=== PATIENT | male | born 1950 | race Hispanic/Latino ===

== ENCOUNTER 2023-10-04 17:08 | Inpatient (IN) | payer OTHER ==
[2023-10-04 19:46] LABS: Absolute Basophils 0.1 K/uL (0-0.5); Absolute Eosinophils 0.3 K/uL (0-0.5); Absolute Lymphocytes (CBC) 2.1 K/uL (0.7-4.9); Absolute Monocytes 0.8 K/uL (0.1-1.3); Absolute Neutrophil 5.6 K/uL (1.8-8.0); Basophils % 0.6 % (0-1.3); Eosinophils % 2.9 % (0-4.4); Hematocrit 44.7 % (39.6-49.0); Hemoglobin 14.5 g/dL (13.6-17.9); Lymphocytes % 23.6 % (15.3-44.8); MCH 27.9 pg (27.0-35.0); MCHC 32.3 g/dL (32.0-36.0); MCV 86.3 fL (80-100); MPV 7.7 fL (7.6-11.3); Monocytes % 8.7 % (3.3-12.3); Neutrophils % 64.2 % (41.7-73.7); Nucleated Red Blood Cells % 0.1 % (0-0); Platelets 249 thou/uL (152-406); RBC Red Blood Cell Count 5.18 M/uL (4.33-5.43); Red Cell Distribution Width 14.3 % (12.1-15.2)
[2023-10-04 19:47] LABS: PT Prothrombin Time 19.5 SECONDS (9.4-12.5); PTT, Activated Partial Thromb 39.2 SECONDS (24.3-36.9); Protime INR 1.77
--- NOTE | 2023-10-04 19:50 | RAD REPORT ---
EXAM DESCRIPTION: [facility] Single View10/04/2023 7:33 pm CLINICAL HISTORY: Preop for back surgery COMPARISON: none FINDINGS: The lungs appear clear of acute infiltrate. The heart is normal size IMPRESSION: No acute abnormalities displayed
[2023-10-04 19:54] LABS: Specific Gravity 1.017 (1.005-1.030); Sqamous Epithelial None Seen /HPF (None Seen); Urine Bacteria None Seen /HPF (<20); Urine Bilirubin NEGATIVE (Negative); Urine Blood Negative (Negative); Urine Clarity Clear (Clear); Urine Color Light-Yellow (Yellow); Urine Culture Reflex Order NOT NEEDED; Urine Glucose NEGATIVE (Negative); Urine Ketones NEGATIVE (Negative); Urine Microscopic Reflex YN ORDER UMIC; Urine Mucus Slight /HPF (None Seen); Urine Nitrite NEGATIVE (Negative); Urine Protein NEGATIVE (Negative); Urine RBC <5 /HPF (None Seen); Urine Urobilinogen Normal (Normal); Urine WBC <5 /HPF (<5)
[2023-10-04] MEDS ORDERED: VANCOMYCIN 1 GM/VIAL ONE (19:58)
[2023-10-04] MEDS ORDERED: NA CHLORIDE 0.9% 250 ML ONE (19:58)
--- NOTE | 2023-10-04 19:59 | ER ---
Nurse's Notes [facility] Name: Clarke Hough Age: 73 yrs Sex: Male : 1950 Arrival Date: 10/04/2023 Time: 17:08 Bed 15 Private MD: Diagnosis: Cutaneous abscess of back [any part, except buttock] Presentation: 10/03 17:31 Chief complaint: Patient states: Dr. Morejon told him to come to ER , he has a cyst on iw his back that popped, he was supposed to have surgery Wednesday but he told me to come in today to the ER. Coronavirus screen: At this time, the client does not indicate any symptoms associated with coronavirus-19. Ebola Screen: No symptoms or risks identified at this time. Initial Sepsis Screen: Does the patient meet any 2 criteria? No. Patient's initial sepsis screen is negative. Does the patient have a suspected source of infection? No. Patient's initial sepsis screen is negative. Risk Assessment: Do you want to hurt yourself or someone else? Patient reports no desire to harm self or others. Onset of symptoms was October 04, 2023. 17:31 Method Of Arrival: Ambulatory iw 17:31 Acuity: NGA 3 iw Historical: - Allergies: 17:32 No Known Allergies; iw - PMHx: 17:32 Hypertensive disorder; iw - PSHx: 17:32 shoulder; iw - Immunization history:: Adult Immunizations up to date. - Infectious Disease History:: Denies. - Social history:: Smoking status: Patient denies any tobacco usage or history of. Screenin:[facility] ED Fall Risk Assessment (Adult) History of falling in the last 3 months, tl4 including since admission No falls in past 3 months (0 pts) Confusion or Disorientation No (0 pts) Intoxicated or Sedated No (0 pts) Impaired Gait No (0 pts) Mobility Assist Device Used No (0 pt) Altered Elimination No (0 pt) Score/Fall Risk Level 0 - 2 = Low Risk Oriented to surroundings, Maintained a safe environment, Educated pt \\T\\ family on fall prevention, incl call for assistance when getting out of bed, Assessed \\T\\ reinforced patient's understanding of fall precautions. Abuse screen: Denies threats or abuse. Denies injuries from another. Nutritional screening: No deficits noted. Tuberculosis screening: No symptoms or risk factors identified. Assessment: 19:35 General: Appears in no apparent distress. Behavior is calm, cooperative. Pain: tl4 Complains of pain in back. Neuro: Level of Consciousness is awake, alert, obeys commands, Oriented to person, place, time, situation, Moves all extremities. Full function Gait is steady, Speech is normal, Facial symmetry appears normal. Cardiovascular: Capillary refill < 3 seconds Patient's skin is warm and dry. Respiratory: Airway is patent Respiratory effort is even, unlabored, Respiratory pattern is regular, symmetrical, Breath sounds are clear bilaterally. GI: No signs and/or symptoms were reported involving the gastrointestinal system. : No signs and/or symptoms were reported regarding the genitourinary system. EENT: No signs and/or symptoms were reported regarding the EENT system. Derm: Abscess located on back has purulent drainage. Musculoskeletal: No signs and/or symptoms reported regarding the musculoskeletal system. Vital Signs: 17:33 BP 113 / 71; Pulse 65; Resp 16; Pulse Ox 97% ; Weight 120.2 kg; Height 5 ft. 9 in. ; iw Pain 5/10; 19:30 BP 136 / 73; Pulse 72; Resp 18; Pulse Ox 98% on R/A; tl4 21:00 BP 144 / 68; Pulse 65; Resp 16; Pulse Ox 97% on R/A; tl4 17:33 Body Mass Index 39.13 (120.20 kg, 175.26 cm) iw 17:33 Pain Scale: Adult iw ED Course: 17:12 Patient arrived in ED. mr 17:22 Armond Humphrey PA is PHCP. cp 17:22 Pedro Belle MD is Attending Physician. cp 17:32 Triage completed. iw 17:33 Arm band placed on. iw 18:58 Bridger Jimenes, LEE is Primary Nurse. tl4 19:33 Urinalysis w/ reflexes Sent. tl4 19:34 Wound Culture Sent. tl4 19:34 Ptt, Activated Sent. tl4 19:34 PT-INR Sent. tl4 19:34 Lactate w/ 2H reflex if indic. Sent. tl4 19:34 CMP Sent. tl4 19:34 CBC with Diff Sent. tl4 19:35 XRAY Chest (1 view) In Process Unspecified. EDMS 19:35 No provider procedures requiring assistance completed. Initial lab(s) drawn, by me, tl4 sent to lab. Urine collected: clean catch specimen, clear, Wound culture swab sent to lab. Inserted saline lock: 22 gauge in left forearm, using aseptic technique. Blood collected. Flushed with 10 mL NS. 19:37 Patient has correct armband on for positive identification. Placed in gown. Bed in low tl4 position. Call light in reach. Side rails up X 1. Provided Education on: ed process, call bey. Client placed on continuous cardiac and pulse oximetry monitoring. NIBP monitoring applied. Door closed. Noise minimized. Lights dimmed. Moved to private room. 19:38 Patient admitted, IV remains in place. tl4 19:42 EKG done, by ED staff, reviewed by Armond CROWLEY. oe 19:59 Bebe Gallegos MD is Hospitalizing Provider. cp 10/04 06:17 Inserted saline lock: 22 gauge in right forearm, using aseptic technique. Blood oe collected. Flushed with 10 mL NS. 11:30 1130 CM met with patient at bedside in the ED exam room. Patient identified by name and ane . Demographic sheet confirmed. states lives with his Linn in a single story home. He reports that prior to admission, he performs ADLs independently and without physical limitations. Patient states he does not have DME, HH, home oxygen at this time, however, mentioned that Dr. Morejon informed him he is going to need "wound care everyday" . Patient also noted that he lives in [place] and has [employer], and is requesting that the HH must be in his are and covered under his insurance. 's plan is to return home upon discharge. He states his adult son can transport him home. CM team will continue to follow and coordinate care. 12:59 Patient admitted, IV remains in place. dd2 Administered Medications: 10/03 20:01 Drug: vancoMYCIN IVPB 1 grams IVPB once over 2 hrs Route: IVPB; Infused Over: 2 hrs; tl4 Site: left antecubital; Delivery: Primary tubing; 21:40 Follow up: Response: No adverse reaction; IV Status: Completed infusion; IV Intake: tl4 250ml Medication: 19:37 VIS not applicable for this client. tl4 Intake: 21:40 IV: 250ml; Total: 250ml. tl4 Outcome: 19:59 Decision to Hospitalize by Provider. cp 10/04 12:18 Admitted to Tele accompanied by tech, via wheelchair, room 408, mb9 Condition: stable Instructed on the need for admit, 12:59 Patient left the ED. dd2 Signatures: Dispatcher [employer] EDMS JarethYessi, Reg Reg mr Ignacia Jane, RN RN Armond Freeman PA PA cp Victoriano Armstrong Mary Beth, RN RN mb9 Bridger Jimenes RN RN tl4 Sonja Calderon RN RN ane DAVIS, DIANA, RN RN dd2
[2023-10-04 20:00] LABS: Albumin 3.6 g/dL (3.4-5.0); Albumin/Globulin Ratio 0.9 (1.1-1.8); Bilirubin Total 0.5 mg/dL (0.2-1.0); Globulin 3.9 g/dL (2.3-3.5); Protein, Total 7.5 g/dL (6.4-8.2)
--- NOTE | 2023-10-04 20:00 | EDPHYS ---
Physician Documentation [facility] Name: Clarke Hough Age: 73 yrs Sex: Male : 1950 Arrival Date: 10/04/2023 Time: 17:08 Bed 15 Private MD: ED Physician Pedro Belle HPI: 10/03 17:45 This 73 yrs old Male presents to ER via Ambulatory with complaints of Abscess. cp 17:45 The patient presents with an abscess of the back. Description: draining, warm, tender. cp 17:45 Associated signs and symptoms: Pertinent negatives: fever, shortness of breath. cp Severity of symptoms: in the emergency department the symptoms are unchanged, despite home interventions. Historical: - Allergies: 17:32 No Known Allergies; iw - PMHx: 17:32 Hypertensive disorder; iw - PSHx: 17:32 shoulder; iw - Immunization history:: Adult Immunizations up to date. - Infectious Disease History:: Denies. - Social history:: Smoking status: Patient denies any tobacco usage or history of. ROS: 17:50 Constitutional: Negative for body aches, chills, fever, poor PO intake, cp 17:50 Skin: Positive for abscess, of the back, cp 17:50 Eyes: Negative for injury, pain, redness, and discharge, cp 17:50 Cardiovascular: Negative for chest pain, edema, palpitations, 17:50 Respiratory: Negative for cough, shortness of breath, wheezing, 17:50 Abdomen/GI: Negative for abdominal pain, vomiting, diarrhea, constipation, 17:50 All other systems are negative, Exam: 17:55 Constitutional: The patient appears in no acute distress, alert, awake, cp non-diaphoretic, well developed, well nourished, 17:55 Head/Face: Normocephalic, atraumatic. cp 17:55 Eyes: Periorbital structures: appear normal, Conjunctiva: normal, no exudate, no injection, Sclera: no appreciated abnormality, Lids and lashes: appear normal, bilaterally, 17:55 ENT: External ear(s): are unremarkable, Nose: is normal, Mouth: Lips: moist, Oral mucosa: pink and intact, moist, Posterior pharynx: is normal, airway is patent, no erythema, no exudate, 17:55 Chest/axilla: Inspection: normal, 17:55 Cardiovascular: Rate: normal, Rhythm: regular, Edema: is not appreciated, JVD: is not appreciated, 17:55 Respiratory: the patient does not display signs of respiratory distress, Respirations: normal, no use of accessory muscles, no retractions, labored breathing, is not present, Breath sounds: are clear throughout, no decreased breath sounds, no stridor, no wheezing, 17:55 Abdomen/GI: Exam negative for discomfort, distension, guarding, Inspection: abdomen appears normal, 17:55 Back: large abscess mid back with mild erythema, purulent drainage noted, 17:55 Neuro: Orientation: to person, place \T\ time. Mentation: is normal, Motor: moves all fours, strength is normal, Sensation: is normal, 19:45 ECG was reviewed by the Attending Physician. cp Vital Signs: 17:33 BP 113 / 71; Pulse 65; Resp 16; Pulse Ox 97% ; Weight 120.2 kg; Height 5 ft. 9 in. ; iw Pain 5/10; 19:30 BP 136 / 73; Pulse 72; Resp 18; Pulse Ox 98% on R/A; tl4 21:00 BP 144 / 68; Pulse 65; Resp 16; Pulse Ox 97% on R/A; tl4 17:33 Body Mass Index 39.13 (120.20 kg, 175.26 cm) iw 17:33 Pain Scale: Adult iw MDM: 17:39 Patient medically screened. cp 18:00 Differential diagnosis: abscess, sepsis, cyst. cp 20:30 Data reviewed: vital signs, nurses notes, lab test result(s), EKG, radiologic studies, cp plain films, and as a result, I will admit patient. 20:30 Independent interpretation of the following test(s) in the Emergency Department EKG: cp See my EKG interpretation above. 20:33 Management of patient was discussed with the following: Hospitalist: will admit after cp discussion, DR Gallegos. 10/03 17:41 Order name: CBC with Diff; Complete Time: 19:53 cp 10/03 17:41 Order name: CMP cp 10/03 20:25 Interpretation: Normal except: CL 108; GLUC 111; BUN 22; GFR 75; GLOB 3.9; A/G 0.9. cp 10/03 17:41 Order name: Lactate w/ 2H reflex if indic.; Complete Time: 20:25 10/03 19:06 Order name: PT-INR; Complete Time: 19:53 cp 10/03 19:06 Order name: Ptt, Activated; Complete Time: 19:53 10/03 19:53 Interpretation: Reviewed. 10/03 19:06 Order name: Wound Culture 10/03 19:07 Order name: Urinalysis w/ reflexes; Complete Time: 20:00 10/03 20:00 Interpretation: Reviewed. 10/03 21:02 Order name: CBC with Automated Diff EDVA 10/03 21:02 Order name: CBC with Automated Diff EDMS 10/03 21:02 Order name: Comprehensive Metabolic Panel [facility] 10/03 21:02 Order name: Comprehensive Metabolic Panel [facility] 10/03 22:32 Order name: Thyroid Stimulating Hormone [facility] 10/03 23:38 Order name: Hemoglobin A1c [facility] 10/04 02:35 Order name: Glucose, Ancillary Testing [facility] 10/04 07:58 Order name: Glucose, Ancillary Testing [facility] 10/04 08:01 Order name: PT-INR dd2 10/04 08:36 Order name: Protime (+INR) [facility] 10/04 12:07 Order name: Glucose, Ancillary Testing [facility] 10/03 19:06 Order name: XRAY Chest (1 view); Complete Time: 19:53 10/03 19:54 Interpretation: Report review. 10/03 19:06 Order name: EKG; Complete Time: 19:06 10/03 21:02 Order name: CONS Physician Consult [facility] 10/03 17:41 Order name: IV; Complete Time: 19:34 10/03 19:06 Order name: EKG - Nurse/Tech; Complete Time: 19:47 10/04 08:20 Order name: Labs - recollect needed: recollect blue top; Complete Time: 08:25 bd EC:45 Rate is 68 beats/min. Rhythm is regular. RI interval is normal. QRS interval is normal. cp QT interval is normal. T waves are Inverted in lead aVR. Interpreted by me. Reviewed by me. Administered Medications: 20:01 Drug: vancoMYCIN IVPB 1 grams IVPB once over 2 hrs Route: IVPB; Infused Over: 2 hrs; tl4 Site: left antecubital; Delivery: Primary tubing; 21:40 Follow up: Response: No adverse reaction; IV Status: Completed infusion; IV Intake: tl4 250ml Disposition Summary: 10/04/23 19:59 Hospitalization Ordered Notes: Hospitalization Status: Inpatient Admission cp Provider: Bebe Gallegos cp Condition: Stable cp Problem: new cp Symptoms: have improved cp Bed/Room Type: Standard cp Location: Telemetry/MedSurg (Inpatient)(10/05/23 12:06) bd Room Assignment: 408(10/05/23 12:06) bd Diagnosis - Cutaneous abscess of back [any part, except buttock] cp Forms: - Medication Reconciliation Form cp - SBAR form cp - Leadership Thank You Letter cp Addendum: 10/08/2023 07:47 I was immediately available for consultation during this patient's visit. I did not e c2 personally see the patient or discuss the patient with the MARCEL. . Signatures: Dispatcher [employer] [facility] Audrey Lorenz Irene, RN RN Roseanne Sharpe RN RN Armond Humphrey PA PA cp Pedro Belle MD MD ec2 Bridger Jimenes RN RN tl4 Corrections: (The following items were deleted from the chart) 10/04 02:06 10/03 19:59 Telemetry/MedSurg (Inpatient) cp ss 10/04 02:06 10/03 19:59 cp ss 10/04 11:10 02:06 [facility] ER HOLD ss bd 11:10 02:06 ERHOLD- ss bd 11:29 11:10 Telemetry/MedSurg (Inpatient) bd bd 11:29 11:10 222 bd bd 12:06 11:29 [facility] ER HOLD bd bd 12:06 11:29 ERHOLD- bd bd 16:36 16:34 Cardiovascular: Negative for chest pain, edema, palpitations, cp cp 16:36 16:34 Respiratory: Negative for cough, shortness of breath, wheezing, cp cp 16:36 16:34 Abdomen/GI: Negative for abdominal pain, vomiting, diarrhea, constipation, cp cp 16:36 16:34 Eyes: Negative for injury, pain, redness, and discharge, cp cp 16:36 16:34 All other systems are negative, cp cp
[2023-10-04] MEDS ORDERED: MORPHINE 2 MG/ML SYR IV PRN (20:57)
[2023-10-04] MEDS ORDERED: ACETAMINOPHEN 500 MG TAB PO PRN (20:57)
[2023-10-04] MEDS ORDERED: ONDANSETRON 4 MG/2 ML VIAL IV PRN (20:57)
[2023-10-04] MEDS ORDERED: MELATONIN 5 MG TABLET PO PRN (20:59)
[2023-10-04] MEDS ORDERED: Oxycodone HCl/Acetaminophen 5/325 MG TAB PO PRN (20:59)
[2023-10-04] MEDS ORDERED: HYDRALAZINE HCL 20 MG/ML VIAL IV PRN (20:59)
[2023-10-04] MEDS ORDERED: VANCOMYCIN 1 GM in NA CHLORIDE 0.9% 250 ML IVPB SCH (21:00)
--- NOTE | 2023-10-04 21:06 | P.HP ---
Certification for Inpatient Patient admitted to: Observation With expected LOS: >2 Midnights Patient will require the following post-hospital care: None Practitioner: I am a practitioner with admitting privileges, knowledge of patient current condition, hospital course, and medical plan of care. Services: Services provided to patient in accordance with Admission requirements found in Title 42 Section 412.3 of the Code of Federal Regulations Patient History Date of Service: 10/04/23 Reason for admission: Back cyst History of Present Illness: 73-year-old male with hypertension, history of A-fib on Coumadin, sent to the emergency room by Dr. Arnulfo Morejon for infected back cyst. Patient noticed swelling in the back which has been increasing in size with associated itching and redness. Patient also admits to some mild pain. He has gone to the surgical clinic and has been seen by Dr. Morejon has been recommended to come to the ER for incision and drainage in the OR. Patient was supposed to come yesterday but decided to come in today. Dr. Morejon has been consulted recommending admission for incision and drainage in a.m. Patient on arrival in the ED, vital signs stable, laboratory workup unremarkable, INR is mildly elevated at 1.7. Home medications list reviewed: No - Past Medical/Surgical History Has patient received pneumonia vaccine in the past: No Diabetic: No -: Hypertension -: Chronic anticoagulation -: History of shoulder surgery - Social History Smoking Status: Never smoker Smoking therapy provided: No Patient receptive to therapy: No Alcohol use: No CD- Drugs: No Caffeine use: No Place of Residence: Home Review of Systems Musculoskeletal: Back Pain Physical Examination - Physical Exam General: Alert, In no apparent distress, Oriented x3 HEENT: Atraumatic, Normocephalic, PERRLA Neck: Supple, 2+ carotid pulse no bruit, JVD not distended Respiratory: Clear to auscultation bilaterally, Normal air movement Cardiovascular: No edema, Normal pulses, Regular rate/rhythm, Normal S1 S2 Gastrointestinal: Normal bowel sounds, Soft and benign, Non-distended, No tenderness Musculoskeletal: No clubbing, No swelling Integumentary: Other (Last cyst over upper back, mildly tender, mild erythema) Neurological: Normal speech, Normal strength at 5/5 x4 extr - Studies Laboratory Data (last 24 hrs) 10/04/23 10/04/23 10/04/23 19:30 19:30 19:30 WBC 8.70 Hgb 14.5 Hct 44.7 Plt Count 249 PT 19.5 H INR 1.77 APTT 39.2 H Sodium 141 Potassium 4.0 BUN 22 H Creatinine 1.04 Glucose 111 H Total Bilirubin 0.5 AST 20 ALT 36 Alkaline Phosphatase 116 Assessment and Plan - Problems (Diagnosis) (1) Infected cyst of skin Current Visit: Yes Status: Acute (2) Elevated INR Current Visit: Yes Status: Acute (3) Hypertension Current Visit: Yes Status: Acute - Plan Impression Infected back cyst Hypertension History of A-fib Chronic anticoagulation Plan Will admit patient to observation Pain control Gentle IV fluid Follow daily INR Hold Coumadin for now Surgical consult with Dr. Morejon, plan for incision and drainage of cyst in a.m. if INR less than 1.5 If repeat INR in a.m. stay above 1.5 will consider FFP but no vitamin K for now DVT prophylaxis start elevated INR, follow IV hydralazine as needed for elevated BP Resume home meds Full code Dispo possible home in a.m. Total time spent in evaluation greater than 60 minutes - Advance Directives Does patient have a Living Will: No Does patient have a Durable POA for Healthcare: No
[2023-10-04 22:32] LABS: Thyroid Stimulating Hormone 0.954 uIU/mL (0.358-3.740)
[2023-10-05] MEDS ORDERED: CEFEPIME 1 GM/VIAL ONE ×2 (01:59→08:38)
[2023-10-05] MEDS ORDERED: NA CHLORIDE 0.9% 1,000 ML ONE (01:59)
[2023-10-05] MEDS ORDERED: FAMOTIDINE 20 MG TAB ONE ×2 (01:59→08:37)
[2023-10-05] MEDS ORDERED: NA CHLORIDE 0.9% 100 ML ONE ×2 (01:59→08:41)
[2023-10-05] MEDS: NA CHLORIDE 0.9% 1,000 ML IV SCH (02:00)
[2023-10-05] MEDS: CEFEPIME 1 GM in NA CHLORIDE 0.9% 100 ML IV SCH (02:00)
[2023-10-05] MEDS: FAMOTIDINE 20 MG TAB PO SCH (02:00)
[2023-10-05] MEDS: INSULIN REGULAR (HUMAN) 100 UNIT/ML SQ SCH (02:00)
[2023-10-05] MEDS ORDERED: VANCOMYCIN 1 GM/VIAL ONE (02:43)
[2023-10-05] MEDS ORDERED: NA CHLORIDE 0.9% 0 ML ONE (02:43)
[2023-10-05] MEDS: VANCOMYCIN 1 GM in NA CHLORIDE 0.9% 250 ML IVPB ONE (02:45)
[2023-10-05 03:19] VITALS: BMI 39.1
[2023-10-05 06:24] LABS: Absolute Eosinophils 0.3 K/uL (0-0.5); Absolute Lymphocytes (CBC) 1.6 K/uL (0.7-4.9); Absolute Monocytes 0.7 K/uL (0.1-1.3); Absolute Neutrophil 4.7 K/uL (1.8-8.0); Basophils % 0.7 % (0-1.3); Eosinophils % 3.5 % (0-4.4); Hematocrit 41.4 % (39.6-49.0); Hemoglobin 13.5 g/dL (13.6-17.9); Lymphocytes % 21.8 % (15.3-44.8); MCH 28.1 pg (27.0-35.0); MCHC 32.7 g/dL (32.0-36.0); MCV 85.9 fL (80-100); MPV 7.6 fL (7.6-11.3); Monocytes % 9.7 % (3.3-12.3); Neutrophils % 64.3 % (41.7-73.7); Nucleated Red Blood Cells % 0.1 % (0-0); Platelets 224 thou/uL (152-406); RBC Red Blood Cell Count 4.82 M/uL (4.33-5.43); Red Cell Distribution Width 14.1 % (12.1-15.2)
[2023-10-05 06:46] LABS: Albumin/Globulin Ratio 0.9 (1.1-1.8); Anion Gap 5.1 mEq/L (5.0-15.0); Bilirubin Total 0.5 mg/dL (0.2-1.0); Globulin 3.3 g/dL (2.3-3.5); Potassium 4.1 mEq/L (3.5-5.1); Protein, Total 6.3 g/dL (6.4-8.2)
[2023-10-05] MEDS: METFORMIN HCL 500 MG TAB PO SCH (08:00)
[2023-10-05 08:36] LABS: PT Prothrombin Time 18.4 SECONDS (9.4-12.5); Protime INR 1.67
[2023-10-05] MEDS ORDERED: NA CHLORIDE 0.9% 250 ML ONE (08:37)
[2023-10-05] MEDS ORDERED: METFORMIN HCL 500 MG TAB ONE (08:37)
[2023-10-05] MEDS: CEFEPIME 2 GM in NA CHLORIDE 0.9% 100 ML IV SCH (09:00)
--- NOTE | 2023-10-05 11:55 | P.CNS ---
Date of Consult: 10/05/23 Reason for Consult: Infected back large tender Back mass with abscess/cellulitis Chief Complaint: Infected back large tender Back mass with abscess/cellulitis History of Present Illness: 73 y/o male with tender back infected large subQ mass with purulent discharge. Pt on coumadin for chronic dvt. Allergies No Known Allergies Allergy (Unverified 10/04/23 23:30) - Past Medical/Surgical History Diabetic: No -: Hypertension -: Chronic anticoagulation -: History of shoulder surgery - Social History Alcohol use: No CD- Drugs: No Caffeine use: No Place of Residence: Home Review of Systems General: Malaise Respiratory: Unremarkable Cardiovascular: Unremarkable Gastrointestinal: Unremarkable Genitourinary: Unremarkable Musculoskeletal: Unremarkable Integumentary: As per HPI Neurological: Unremarkable Physical Examination Temp Pulse Resp BP Pulse Ox 98.3 F 64 16 177/88 H 97 10/05/23 10:04 10/05/23 10:04 10/05/23 10:04 10/05/23 10:04 10/05/23 10:04 General: Alert, Oriented x3, Cooperative HEENT: Normocephalic, PERRLA Neck: Supple Respiratory: Normal air movement Cardiovascular: Regular rate/rhythm Gastrointestinal: Soft and benign, No rebound, No guarding Musculoskeletal: Erythema Integumentary: Skin breakdown, Tenderness/swelling, Erythema, Warmth Neurological: Normal speech Laboratory Data (last 24 hrs) 10/04/23 10/04/23 10/04/23 19:30 19:30 19:30 WBC 8.70 Hgb 14.5 Hct 44.7 Plt Count 249 PT 19.5 H INR 1.77 APTT 39.2 H Sodium 141 Potassium 4.0 BUN 22 H Creatinine 1.04 Glucose 111 H Total Bilirubin 0.5 AST 20 ALT 36 Alkaline Phosphatase 116 Conclusions/Impression: Infected large back mass with purulent discharge [id number]. Pt anticoagulated with coumadin with elevated INR Pt explained BAR of excisional biopsy of infected back mass with abscess wilder earl including but not limited ti infection, bleeding, damage to adjacent structures, non healing wound , DVT, pulmonary emboli NH even . Pt understood he may need chronic wound care. INR repeat in AM NPO P MN
--- NOTE | 2023-10-05 12:40 | EKG ---
Test Date: 2023-10-04 Test Time: 19:41:08 Sock Examiner: VIKTORIYA MEASUREMENT RESULTS: Intervals: Rate: 68 VA: 134 QRSD: 82 QT: 416 QTc: 442 Frost: P: 35 VA: 134 QRS: 29 T: 52 INTERPRETIVE STATEMENTS: Normal sinus rhythm Normal ECG No previous ECG available for comparison Electronically Signed On 10-05-23 12:38:12 CDT by Elgin Davis
--- NOTE | 2023-10-05 12:55 | P.PN ---
Date of Service: 10/05/23 Subjective: no acute events since admission pain tolerable if not touching area / not hitting it ROS: 10 point ROS as noted above, otherwise negative Physical Exam: GEN: Alert, oriented, NAD HEENT: Normal conjunctiva, sclera anicteric CV: Regular rate and rhythm, no edema Pulm: Nonlabored respirations on room air, clear bilaterally Integumentary: ~[id number] large back mass with surrounding erythema, swelling, tenderness. +purulent drainage Neuro: Normal speech, normal affect vitals reviewed Problem List: Infected back cyst ~[id number] NIDDM2 Hypertension Chronic DVT on chronic anticoagulation Infected back cyst ~[id number] presented with infected back cyst that has been increasining in size/redness/itchyness. +with purulent drainage. Has been seeing Dr. Morejon in clinic. Was recommended to come to ER for I&D by Dr. Jean-Pierre Morejon, general surgeon consulted NPO at midnight for tentative I&D tomorrow continue empiric cefepime (10/04-) pain control continue IV fluids local wound care per surgery NIDDM2 accu-cheks, SSI resume home metformin Hypertension confirm home meds, restart as appropriate Chronic DVT on chronic anticoagulation on coumadin at home. hold for now given tentative surgery daily INR VTE: hold home coumadin for now Code: Full Dispo: Home Pending tentative surgery tomorrow / recovery Time Spent Managing Pts Care (In Minutes): 41
[2023-10-05] MEDS: VANCOMYCIN 2 GM in NA CHLORIDE 0.9% 500 ML IVPB SCH (15:25)
[2023-10-05] MEDS ORDERED: PNEUMOCOCCAL VACCINE 0.5 ML IMVAC ONE (18:00)
[2023-10-05] MEDS ORDERED: VANCOMYCIN 2 GM in NA CHLORIDE 0.9% 500 ML IVPB SCH (21:00)
[2023-10-06 07:58] LABS: PT Prothrombin Time 17.8 SECONDS (9.4-12.5); Protime INR 1.61
[2023-10-06 07:59] LABS: Hematocrit 40.8 % (39.6-49.0); MCH 27.9 pg (27.0-35.0); MCV 87.2 fL (80-100); MPV 8.3 fL (7.6-11.3); Platelets 211 thou/uL (152-406); RBC Red Blood Cell Count 4.68 M/uL (4.33-5.43); Red Cell Distribution Width 13.8 % (12.1-15.2)
[2023-10-06 08:02] LABS: Anion Gap 5.8 mEq/L (5.0-15.0); Magnesium 1.9 mg/dL (1.6-2.4); Potassium 3.8 mEq/L (3.5-5.1)
[2023-10-06] MEDS ORDERED: ENOXAPARIN 40 MG/0.4 ML SQ SCH (09:00)
[2023-10-06] MEDS ORDERED: FENTANYL CITR 100 MCG/2 ML ONE (09:57)
[2023-10-06] MEDS ORDERED: LIDOCAINE 2% MPF 5 ML VIAL ONE (09:57)
[2023-10-06] MEDS ORDERED: ONDANSETRON 4 MG/2 ML VIAL ONE (09:57)
[2023-10-06] MEDS ORDERED: propofoL 200 MG/20 ML VIAL IV ONE (09:57)
--- NOTE | 2023-10-06 11:21 | P.BOP ---
Preoperative diagnosis: Infected tendelarge back mass with abscess, Coumadin induced coagulapathy, Postoperative diagnosis: same Primary procedure: Excisional biopsy Infected large back mass with abscess [id number] Estimated blood loss: <10cc Specimen: mass, pus culture Findings: mass with deep abscess Anesthesia: General Complications: None Transferred to: Recovery Room Condition: Good
[2023-10-06 11:48] VITALS: O2SAT 98
--- NOTE | 2023-10-06 12:42 | P.PN ---
Date of Service: 10/06/23 Subjective: went to OR this morning with some oozing post-op, dressing re-inforced otherwise feeling ok, pain tolerable ROS: 10 point ROS as noted above, otherwise negative Physical Exam: GEN: Alert, oriented, NAD CV: Regular rate and rhythm, no edema Pulm: Nonlabored respirations on room air, clear bilaterally Integumentary: wet-dry dressing in place over back wound. with reddish saturation Neuro: Normal speech, normal affect vitals reviewed Problem List: Infected back mass with abscess ([id number]), now s/p I&D (10/05) NIDDM2 Hypertension Chronic DVT on chronic anticoagulation; ?genetic predisposition Infected back mass with abscess ([id number]), now s/p I&D (10/05) presented with infected back cyst that has been increasining in size/redness/itchyness. +with purulent drainage. Has been seeing Dr. Morejon in clinic. Was recommended to come to ER for I&D by Dr. Jean-Pierre Morejon, general surgeon consulted s/p I&D (10/05) - found to have large infected abscess. local wound care per surgery - wet to dry dressings will need continued wound care on dc; can see Dr. 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 Lead to testing and discovery of a genetic issue okay to restart coumadin tonight per surgery daily INR may need lovenox bridge VTE: restart coumadin tonight Code: Full Dispo: Home, ~1-2 days Pending recovery, stable INR Time Spent Managing Pts Care (In Minutes): 41
--- NOTE | 2023-10-06 13:24 | OP ---
Date of Procedure: 10/06/2023 Surgeon: Arnulfo Morejon MD Preoperative Diagnoses: Infected, tender, large back subcutaneous mass with abscess; Coumadin-induce d coagulopathy. Postoperative Diagnoses: Infected, tender, large back subcutaneous mass with abscess; Coumadin-induc ed coagulopathy. Procedure: Excisional biopsy of infected, large, tender subcutaneous mass with abscess drainage abou t 15 x 10 cm. Estimated Blood Loss: Less than 10 cc. Specimens: Mass, pus culture. Findings: Mass with deep abscess. Multiple loculations present. Anesthesia: General plus local. Complications: None. Indications: This is the case of a 73-year-old patient comes to us with a large mass in the back sec reting pus. He was going to have this done electively, but the area "bursted" before he can have it done electively. Now is having purulent discharge. He was admitted to the hospital. He is on coagu lopathy, Coumadin, for history of DVTs in the past. He is not from this area. His doctors are in [facility], so it is hard to get the information on his previous INR and adequate dose. The benefits, al ternatives, and risks of excisional biopsy of large back subcutaneous mass with abscess drainage was fully explained, which include, but not limited to infection, bleeding, damage to adjacent structures , anesthesia complication, nonhealing wound, NH, and even . He also understands he will require dressing changes and most likely Home Health due to location. Also, while he comes back in [facility], we may have more bleeding than in the usual patient. He understands the limitation, but sti ll dressings have to be changed. The benefits, alternatives, and risks were fully explained, which i nclude, but not limited to infection, bleeding, damage to adjacent structures, anesthesia complicatio n, nonhealing wound, NH, and even . He also understands this may not relieve any symptoms. He might need more than one surgical intervention. He understood, signed a consent. The area of concer n was marked by me and the patient in the holding room. Description Of Procedure: The patient was brought to the operating room, placed in supine position, and then placed in lateral decubitus position with proper protection. Back area was prepped and drap ed in sterile fashion. A round incision was made in that region to include the mass since this is pa rtially attached to the skin and then all the way deep in the subcutaneous tissue down to muscle. Th e mass was completely excised. There was pus coming from this mass, so we cultured the mass and sent the mass for biopsy. After that, we obtained hemostasis and packed the area with wet-to-dry dressin gs. The patient tolerated the procedure well. Local anesthetic and irrigation was done before closu re. The patient was sent to recovery in stable condition. We discussed with the patient postop care and how in the next few weeks, he is going to need dressing changes with Home Health. He also has a n option of following up with me at [facility] on Wednesday or at [facility] or at [facility] on Wednesday. JAN/NIKIA Voice ID: [id number] Report ID: [id number]
[2023-10-06] MEDS: WARFARIN SODIUM 2.5 MG TAB PO SCH (18:31)
[2023-10-07 06:40] LABS: Absolute Eosinophils 0.2 K/uL (0-0.5); Absolute Lymphocytes (CBC) 1.6 K/uL (0.7-4.9); Absolute Monocytes 0.7 K/uL (0.1-1.3); Absolute Neutrophil 5.6 K/uL (1.8-8.0); Basophils % 0.6 % (0-1.3); Eosinophils % 2.9 % (0-4.4); Hematocrit 39.9 % (39.6-49.0); Hemoglobin 12.8 g/dL (13.6-17.9); Lymphocytes % 19.4 % (15.3-44.8); MCH 27.8 pg (27.0-35.0); MPV 8.5 fL (7.6-11.3); Monocytes % 8.9 % (3.3-12.3); Neutrophils % 68.2 % (41.7-73.7); Nucleated Red Blood Cells % 0.1 % (0-0); Platelets 193 thou/uL (152-406); RBC Red Blood Cell Count 4.58 M/uL (4.33-5.43); Red Cell Distribution Width 13.9 % (12.1-15.2)
[2023-10-07 06:42] LABS: PT Prothrombin Time 16.2 SECONDS (9.4-12.5); Protime INR 1.46
[2023-10-07 06:49] LABS: Anion Gap 8.8 mEq/L (5.0-15.0); Magnesium 1.9 mg/dL (1.6-2.4); Potassium 3.8 mEq/L (3.5-5.1)
[2023-10-07] MEDS: INSULIN REGULAR (HUMAN) 100 UNIT/ML SQ SCH (07:30)
[2023-10-07 07:50] LABS: Blood Morphology Comment NOT SEEN (NOT SEEN); Differential Total Cells Count 100; Eosinophils 3 % (0-3); Lymphocytes 26 % (15-42); Monocytes 6 % (0-10); Platelet Estimate ADEQ; Segmented Neutrophils 63 % (40-80); White Blood Cell Scan OK (OK)
[2023-10-07] MEDS: Enoxaparin 120 MG/0.8 ML SYR SQ SCH (09:22)
--- NOTE | 2023-10-07 12:16 | P.PN ---
Subjective Date of Service: 10/07/23 Chief Complaint: Infected back large tender Back mass with abscess/cellulitis Subjective: Tolerating diet, Ambulating, Improving Review of Systems General: Unremarkable Eyes: Unremarkable ENT: Unremarkable Respiratory: Unremarkable Cardiovascular: Unremarkable Gastrointestinal: Unremarkable Physical Examination - Vital Signs Temperature: 97.5 F Blood Pressure: 145/74 Pulse: 67 Respirations: 20 Pulse Ox (%): 98 - Physical Exam General: Alert, In no apparent distress, Oriented x3, Cooperative HEENT: PERRLA, EOMI Neck: Supple Respiratory: Normal air movement Cardiovascular: Normal pulses Gastrointestinal: Soft and benign, No rebound, No guarding Musculoskeletal: No erythema, No tenderness, No warmth Integumentary: No rashes, No breakdown, No cyanosis (no bleeding), Other (dressing changed by me today. no bleeding) - Studies Microbiology Data (last 24 hrs): 10/04/23 19:22 Wound - Back Gram Stain - Final 10/04/23 19:22 Wound - Back Culture & Sensitivity - Final Assessment And Plan - Plan wet to dry Home health f/u At [facility] next wednesday. Pt to call for appt time. Fully explained few times to patient.
--- NOTE | 2023-10-07 12:17 | P.PN ---
Subjective Date of Service: 10/07/23 Chief Complaint: Infected back large tender Back mass with abscess/cellulitis Subjective: Tolerating diet, Improving Review of Systems Respiratory: Unremarkable Cardiovascular: Unremarkable Gastrointestinal: Unremarkable Physical Examination - Vital Signs Temperature: 97.5 F Blood Pressure: 145/74 Pulse: 67 Respirations: 20 Pulse Ox (%): 98 - Physical Exam General: Alert, In no apparent distress, Oriented x3, Cooperative HEENT: PERRLA, EOMI Neck: Supple Gastrointestinal: Soft and benign Integumentary: Diabetic ulcer - Studies Microbiology Data (last 24 hrs): 10/04/23 19:22 Wound - Back Gram Stain - Final 10/04/23 19:22 Wound - Back Culture & Sensitivity - Final Assessment And Plan - Plan wet to dry Home health f/u At [facility] next wednesday. Pt to call for appt time. Fully explained few times to patient.
--- NOTE | 2023-10-07 18:33 | P.PN ---
Date of Service: 10/07/23 Subjective: no new/worsening issues no acute events overnight oozing from surgical site improved ROS: 10 point ROS as noted above, otherwise negative Physical Exam: GEN: Alert, oriented, NAD CV: Regular rate and rhythm, no edema Pulm: Nonlabored respirations on room air, clear bilaterally Integumentary: wet-dry dressing in place over back wound. 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 +with purulent drainage. Has been seeing Dr. Morejon in clinic. Was recommended to come to ER for I&D by Dr. Jean-Pierre Morejon, general surgeon consulted s/p I&D (10/05) - found to have large infected abscess. local wound care per surgery - wet to dry dressings will need continued wound care on dc; can see Dr. 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 Lead to testing and discovery of a genetic issue continue coumadin given genetic mutation / risk of DVT, will bridge with lovenox will reach out to hematology daily INR VTE: coumadin, lovenox 1mg/kg BID bridge Code: Full Dispo: Home, ~1-2 days improvement, INR Time Spent Managing Pts Care (In Minutes): 41
[2023-10-08 06:36] LABS: Hematocrit 39.4 % (39.6-49.0); Hemoglobin 12.8 g/dL (13.6-17.9); MCH 28.2 pg (27.0-35.0); MCHC 32.4 g/dL (32.0-36.0); MCV 86.8 fL (80-100); MPV 8.1 fL (7.6-11.3); Platelets 216 thou/uL (152-406); RBC Red Blood Cell Count 4.54 M/uL (4.33-5.43)
[2023-10-08 06:39] LABS: Protime INR 1.44
[2023-10-08 12:25] VITALS: BP 147/74; TEMP 97.7
--- NOTE | 2023-10-08 12:44 | P.DS ---
Admission Date: 10/05/23 Discharge Date: 10/08/23 Disposition: OK HOME/HOME HEALTH CARE Discharge Condition: GOOD Reason for Admission: Infected back large tender Back mass with abscess/cellulitis Consultations: General surgery - Dr. Morejon Brief History of Present Illness: 73 yo M, PMH: hypertension, history of A-fib on Coumadin, Patient was sent to the emergency room by Dr. Arnulfo Morejon for infected back cyst. Patient noticed swelling in the back which has been increasing in size with associated itching and redness. Patient also admits to some mild pain. He has gone to the surgical clinic and has been seen by Dr. Morejon has been recommended to come to the ER for incision and drainage in the OR. Patient was supposed to come yesterday but decided to come in today. Dr. Morejon has been consulted recommending admission for incision and drainage in a.m. Patient on arrival in the ED, vital signs stable, laboratory workup unremarkable, INR is mildly elevated at 1.7. Hospital Course: Problem List: Infected back mass with abscess ([id number]), now s/p I&D (10/05) NIDDM2 Hypertension Chronic DVT on chronic anticoagulation; secondary to factor 2 mutation (prothrombin gene mutation) Physician discharge instructions: Patient presented to ED with progressively worsening infected back wound that been increasing in size/redness/itchyness. Patient had been advised to come to ER per Dr. Morejon recommendations. He was evaluated by Dr. Morejon and taken to OR for incision and drainage on 10/05 where he was found to have a large infected abscess [id number] in size. Patient did well post-operatively. Patient was feeling better, back pain improving, remained afebrile without leukocytosis, and was deemed stable for d ischarge home with home health. Recommend following up with Dr. Morejon at [facility] as previously discussed. Call [facility] to make an appointment for next wednesday afternoon. Patient received ~3 days of empiric vanc / cefepime while hospitalized and is to complete 7 more days of oral doxycycline on discharge for total of ~10 days treatment. During his hospitalization, patient reported history of DVT and after further discussion with patient/family, was found to be secondary to factor 2 mutation (prothrombin gene mutation). Discussed with surgery, given his genetic mutation and risk of DVT, recommending continue to bridge with lovenox until INR is therapeutic. Highly recommend to recheck INR every other day starting tomorrow until INR is therapeutic. INR on discharge: 1.46. Medications: doxycycline for 7 days continue lovenox 1mg/kg q12hr until INR is therapeutic tramadol 10 pills as needed for pain Prescriptions sent to [facility] in [place] Local wound care per surgery: Wet to dry dressing changes with normal saline daily Follow up: PCP 3-[address] Morejon at [facility] next Wednesday afternoon Call to schedule / confirm appointments Physical Exam: GEN: Alert, oriented, NAD CV: Regular rate and rhythm, no edema Pulm: Nonlabored respirations on room air, clear bilaterally Integumentary: wet-dry dressing in place over back wound. Neuro: Normal speech, normal affect Vital Signs/Physical Exam: Temp Pulse Resp BP Pulse Ox 97.7 F 69 16 147/74 H 97 10/08/23 12:00 10/08/23 12:00 10/08/23 12:00 10/08/23 12:00 10/08/23 12:00 Laboratory Data at Discharge: WBC 8.40 thou/uL (4.3-10.9) 10/08/23 06:06 Hgb 12.8 g/dL (13.6-17.9) L 10/08/23 06:06 Hct 39.4 % (39.6-49.0) L 10/08/23 06:06 Plt Count 216 thou/uL (152-406) 10/08/23 06:06 PT 16.0 SECONDS (9.4-12.5) H 10/08/23 06:06 INR 1.44 10/08/23 06:06 APTT 39.2 SECONDS (24.3-36.9) H 10/04/23 19:30 Sodium 143 mEq/L (136-145) 10/08/23 06:06 Potassium 4.0 mEq/L (3.5-5.1) 10/08/23 06:06 BUN 13 mg/dL (7-18) 10/08/23 06:06 Creatinine 0.86 mg/dL (0.70-1.30) 10/08/23 06:06 Glucose 113 mg/dL (74-106) H 10/08/23 06:06 Magnesium 1.9 mg/dL (1.6-2.4) 10/07/23 05:54 Total Bilirubin 0.5 mg/dL (0.2-1.0) 10/05/23 06:14 AST 15 U/L (15-37) 10/05/23 06:14 ALT 29 U/L (16-61) 10/05/23 06:14 Alkaline Phosphatase 100 U/L (45-117) 10/05/23 06:14 Home Medications: Atorvastatin Calcium [Lipitor] 80 mg PO BEDTIME 10/05/23 Cetirizine HCl [Zyrtec] 10 mg PO DAILY AT SUPPER 10/05/23 Furosemide [Lasix*] 20 mg PO DAILY 10/05/23 Losartan Potassium [Cozaar] 100 mg PO DAILY 10/05/23 Metformin ER [Glucophage ER*] 500 mg PO DAILY 10/05/23 Montelukast [Singulair*] 10 mg PO DAILY 10/05/23 Warfarin Sodium [Coumadin*] 2.5 mg PO DAILY 5 PM 10/05/23 Enoxaparin Sodium [Lovenox 120 MG INJ] 120 mg SQ BID 7 Days #14 syr 10/07/23 Doxycycline Hyclate 100 mg PO BID 7 Days #14 tab 10/08/23 traMADol HCL [Ultram*] 50 mg PO Q6H PRN #10 tab 10/08/23 New Medications: Doxycycline Hyclate 100 mg PO BID 7 Days #14 tab Enoxaparin Sodium [Lovenox 120 MG INJ] 120 mg SQ BID 7 Days #14 syr traMADol HCL [Ultram*] 50 mg PO Q6H PRN #10 tab PRN Reason: Pain Physician Discharge Instructions: Physician discharge instructions: Patient presented to ED with progressively worsening infected back wound that been increasing in size/redness/itchyness. Patient had been advised to come to ER per Dr. Morejon recommendations. He was evaluated by Dr. Morejon and taken to OR for incision and drainage on 10/05 where he was found to have a large infected abscess [id number] in size. Patient did well post-operatively. Patient was feeling better, back pain improving, remained afebrile without leukocytosis, and was deemed stable for discharge home with home health. Recommend following up with Dr. Morejon at [facility] as previously discussed. Call [facility] to make an appointment for next romina afternoon. Patient received ~3 days of empiric vanc / cefepime while hospitalized and is to complete 7 more days of oral doxycycline on discharge for total of ~10 days treatment. During his hospitalization, patient reported history of DVT and after further d iscussion with patient/family, was found to be secondary to factor 2 mutation (prothrombin gene mutation). Discussed with surgery, given his genetic mutation and risk of DVT, recommending continue to bridge with lovenox until INR is therapeutic. Highly recommend to recheck INR every other day starting tomorrow until INR is therapeutic. INR on discharge: 1.46. Medications: doxycycline for 7 days continue lovenox 1mg/kg q12hr until INR is therapeutic tramadol 10 pills as needed for pain Prescriptions sent to [facility] Local wound care per surgery: Wet to dry dressing changes with normal saline daily Follow up: PCP 3-[address] Morejon at [facility] next Wednesday Call to schedule / confirm appointments Home Health (2-3 nursing visits weekly approved by insurance) [facility] P:[phone] F:[phone] Diet: AHA Followup: Steve Jansen MD [Primary Care Provider] - Time spent managing pt's care (in minutes): 45
[2023-10-08] MEDS ORDERED: ATORVASTATIN 80 MG TAB PO SCH (21:00)
== END 2023-10-08 14:20 | disposition home health service (06) | DRG 603 ==
LOC: ER 17:08 → ERHOLD 20:57 → 4TH 10-05 12:18 → OBSVTOIN 10-05 12:27
PROVIDERS: ADMIT Internal Medicine; ATTEND Hospitalist
PROC: 0J970ZX Drainage of Back Subcutaneous Tissue and Fascia, Open Approach, Diagnostic (ICD-10-PCS; principal; 2023-10-06 11:45)
DX: L02.212 Cutaneous abscess of back [any part, except buttock and flank] (principal); I82.509 Chronic embolism and thrombosis of unspecified deep veins of unspecified lower extremity; D68.9 Coagulation defect, unspecified; L03.312 Cellulitis of back [any part except buttock and flank]; I10 Essential (primary) hypertension; I48.91 Unspecified atrial fibrillation; E11.9 Type 2 diabetes mellitus without complications; T45.515A Adverse effect of anticoagulants, initial encounter; Z79.01 Long term (current) use of anticoagulants; Z79.84 Long term (current) use of oral hypoglycemic drugs; Z79.899 Other long term (current) drug therapy
CPT/HCPCS: 36415; 71045; 80048; 80053; 80202; 81001; 82947; 83036; 83605; 83735; 84443; 85025; 85027; 85610; 85730; 87070; 87075; 87205; 88304; 93005; 94010; 96365; 96366; 99285; G0378; J0692; J1650; J2001; J2405; J2704; J3010; J7030; J7040; J7050